=== PATIENT | male | born 1975 | race Two or more races ===

== ENCOUNTER 2020-09-12 16:23 | Emergency (ER) | payer BC, MEDICAID ==
[~2020-09-12] VITALS: Ht 180.3 cm; Wt 113.4 kg
[2020-09-12 17:41] LABS: Basophils # (auto) 0 10 ^3/uL (0-0.2); Basophils % (auto) 0.6 % (0.0-2.0); Eosinophils # (auto) 0.1 10 ^3/uL (0-0.8); Eosinophils % (auto) 1.4 % (0.0-7.0); Hemoglobin 15.3 g/dL (13.5-17.5); Lymphocytes # (auto) 1.6 10 ^3/uL (0.4-5.4); Lymphocytes % (auto) 29.6 % (10.0-50.0); Mean Corpuscular Hemoglobin 30.1 pg (28.0-32.0); Mean Corpuscular Hgb Conc. 35.7 g/dL (32.0-36.0); Mean Corpuscular Volume 84.3 fL (80.0-100.0); Monocytes # (auto) 0.3 10 ^3/uL (0-1.3); Monocytes % (auto) 6.2 % (0.0-12.0); Neutrophils # (auto) 3.4 10 ^3/uL (1.6-8.6); Neutrophils % (auto) 62.2 % (37.0-80.0); Nucleated Red Blood Cells % 1.5 %; Platelet Count (auto) 157 10^3/uL (140-450); Red Cell Distribution Width 13.1 % (11.8-14.3); White Blood Cell 5.5 10^3/uL (4.4-10.8)
[2020-09-12 17:59] LABS: Alanine Aminotransferase 27 U/L (16-61); Albumin 4.2 g/dL (3.4-5.0); Anion Gap 2 (5-15); Blood Urea Nitrogen 18 mg/dL (7-18); Calcium 8.9 mg/dL (8.5-10.1); Carbon Dioxide 28 mmol/L (21-32); Chloride 108 mmol/L (98-107); Glucose 88 mg/dL (74-106); Potassium 3.8 mmol/L (3.5-5.1); Sodium 138 mmol/L (136-145)
[2020-09-12 18:07] LABS: Alkaline Phosphatase 84 U/L (45-117); Aspartate Aminotransferase 13 U/L (15-37); BUN/Creatinine Ratio 18.9; Bilirubin, Total 0.4 mg/dL (0.2-1.0); GFR African American 109 mL/min; GFR Non-African American 90 mL/min; Total Protein 7.7 g/dL (6.4-8.2)
[2020-09-12 21:52] VITALS: BP 134/86
== END 2020-09-12 21:55 | disposition home or self-care (01) ==
LOC: ER 16:23
DX: F41.8 Other specified anxiety disorders (principal)
CPT/HCPCS: 36415; 71045; 80053; 84484; 85025; 93005